=== PATIENT | male | born 1935 | race Caucasian/White ===

== ENCOUNTER 2022-01-29 11:35 | Day surgery (SDC) | payer OTHER, SELFPAY ==
[~2022-01-29] VITALS: Ht 167.6 cm; Wt 99.8 kg
[~2022-01-29 11:35] MED LIST: CEFAZOLIN SOD 1 GM in D5W 50 ML IV ONE
[2022-01-29] MEDS ORDERED: BUPIVACAINE /EPINEPHRINE/PF 0.25% 30 ML VIAL INJ ONE (14:16)
[2022-01-29] MEDS ORDERED: WATER FOR IRRIGATION,STERILE 1,000 ML IRRIG.SOLN IR ONE (14:16)
[2022-01-29] MEDS ORDERED: ROCURONIUM BROMIDE 10 MG/ML (ZEMURON) ONE (14:16)
[2022-01-29] MEDS ORDERED: LR 1,000 ML IV.SOLN IV ONE (14:16)
[2022-01-29] MEDS ORDERED: ceFAZolin SODIUM 1 GM VIAL ONE (14:16)
[2022-01-29] MEDS ORDERED: fentaNYL CITRATE 250 MCG/5 ML AMP ONE (14:16)
[2022-01-29] MEDS ORDERED: MIDAZOLAM HCL 5 MG/ML VIAL (VERSED) IV ONE (14:16)
[2022-01-29] MEDS ORDERED: SUGAMMADEX SODIUM 200 MG/2 ML VIAL IV ONE (14:16)
[2022-01-29] MEDS ORDERED: PROPOFOL 200MG/ 20ML VIAL (DIPRIVAN) IV ONE (14:16)
[2022-01-29] MEDS ORDERED: LIDOCAINE PF 2%, 200 MG/10 ML AMPUL.LUER (EPIDURAL) INJ ONE (14:16)
[2022-01-29] MEDS ORDERED: DESFLURANE 15 MIN GAS INH ONE (14:16)
[2022-01-29] MEDS ORDERED: DEXAMETHASONE SOD PHOSPHATE 4 MG/ML VIAL ONE (14:16)
[2022-01-29] MEDS ORDERED: ACETAMINOPHEN I.V. 1000 MG /100 ML IVPB PREMIX IV ONE (14:16)
[2022-01-29] MEDS ORDERED: ONDANSETRON HCL 4 MG/2 ML VIAL ONE (14:16)
[2022-01-29] MEDS ORDERED: NS IRRIG SOLN 1000 ML IR ONE (14:16)
[2022-01-29] MEDS ORDERED: hydrALAZINE HCL 20 MG/ML VIAL IVP PRN (15:00)
[2022-01-29] MEDS ORDERED: ONDANSETRON HCL 4 MG/2 ML VIAL IVP PRN (15:00)
[2022-01-29] MEDS ORDERED: LABETALOL 100 MG/ 20ML VIAL IVP PRN (15:00)
[2022-01-29] MEDS ORDERED: MEPERIDINE HCL/PF 25 MG/ML DISP.SYRIN IVP PRN (15:00)
[2022-01-29] MEDS ORDERED: HYDROmorphone 1 MG/ML INJ. CARTRIDGE IVP PRN ×2 (15:00)
[2022-01-29] MEDS ORDERED: LR 1,000 ML IV SCH (15:00)
[2022-01-29] MEDS ORDERED: ACETAMINOPHEN I.V. 1000 MG 100 ML IV ONE (15:02)
[2022-01-29] MEDS ORDERED: D5/0.45 NS 1,000 ML IV SCH (15:30)
[2022-01-29] MEDS ORDERED: HYDROcodone/ACETAMIN 5-325 MG TAB (NORCO/ VICODIN) PO PRN ×2 (15:30)
[2022-01-29 17:20] VITALS: BP_SYST 122
== END 2022-01-29 18:00 | disposition home or self-care (01) ==
LOC: SDS 11:35
PROVIDERS: ATTEND Colon & Rectal Surgery
DX: K62.5 Hemorrhage of anus and rectum (principal); K60.2 Anal fissure, unspecified; K62.89 Other specified diseases of anus and rectum; I10 Essential (primary) hypertension; I48.91 Unspecified atrial fibrillation; J45.909 Unspecified asthma, uncomplicated; Z85.51 Personal history of malignant neoplasm of bladder; M19.90 Unspecified osteoarthritis, unspecified site; Z79.899 Other long term (current) drug therapy; Z20.822 Contact with and (suspected) exposure to COVID-19
CPT/HCPCS: 36415; 45378; 46200; 87426; 88304; J0131; J0690; J1100; J2001; J2250; J2405; J2704; J3010; J3490 ×2; J7060; J7120; U0003